=== PATIENT | male | born 1990 | race Caucasian/White ===

== ENCOUNTER 2016-09-21 08:37 | Emergency (ER) | payer BC, MEDICAID ==
[~2016-09-21] VITALS: Ht 177.8 cm; Wt 74.0 kg
[2016-09-21] MEDS ORDERED: SUBO8MIS (08:54)
[2016-09-21] MEDS ORDERED: PANT40TA2 (08:54)
[2016-09-21] MEDS ORDERED: SERT-155 (08:54)
[2016-09-21] MEDS ORDERED: GABA800T (08:54)
[2016-09-21] MEDS ORDERED: ONDANSETRON 4MG/2ML VIAL (J2405) IV ONE (09:30)
[2016-09-21] MEDS ORDERED: KETOROLAC 30 MG/ML VIAL (J1885) IV ONE (09:30)
[2016-09-21] MEDS ORDERED: ISOVUE-370 76% 100ML VIAL (Q9967) As Ordered ONE (09:35)
[2016-09-21] MEDS ORDERED: GASTROGRAFIN SOLUTION 30ML PO ONE (09:45)
[2016-09-21 10:10] LABS: ALBUMIN 4.2 GM/DL (3.2-5.2); ALBUMIN/GLOBULIN RATIO 1.11 (1.00-1.93); ALKALINE PHOSPHATASE 74 U/L (45-117); ALT/SGPT 19 U/L (12-78); AMYLASE 39 U/L (25-115); ANION GAP 5 MEQ/L (8-16); AST/SGOT 14 U/L (15-37); BASO # 0.1 K/mm3 (0.0-0.2); BASO % 0.7 % (0.0-1.0); BILIRUBIN,DIRECT < 0.1 MG/DL (0.0-0.2); BILIRUBIN,TOTAL 0.3 MG/DL (0.2-1.0); BLOOD UREA NITROGEN 17 MG/DL (7-18); CALCIUM LEVEL 9.2 MG/DL (8.5-10.1); CARBON DIOXIDE LEVEL 31 MEQ/L (21-32); CHLORIDE LEVEL 105 MEQ/L (98-107); CREATININE FOR GFR 1.21 MG/DL (0.70-1.30); EOS # 0.8 K/mm3 (0.0-0.50); EOS % 7.4 % (0.0-3.0); GLOMERULAR FILTRATION RATE > 60.0 (>60); GLUCOSE, FASTING 92 MG/DL (70-105); LARGE UNSTAINED CELL # 0.1 K/mm3 (0.0-0.4); LARGE UNSTAINED CELL % 0.7 % (0.0-4.0); LYMPH # 2.1 K/mm3 (1.5-6.5); LYMPH % 19.2 % (24.0-44.0); MEAN CORPUSCULAR HEMOGLOBIN 29.5 pg (27.0-33.0); MEAN CORPUSCULAR HGB CONC 35.4 g/dl (32.0-36.5); MEAN CORPUSCULAR VOLUME 83.5 fl (80.0-96.0); MONO # 0.6 K/mm3 (0.0-0.8); MONO % 6.1 % (0.0-5.0); NEUTROPHILS # 6.9 K/mm3 (1.8-7.7); PLATELET COUNT, AUTOMATED 216 k/mm3 (150-450); RED CELL DISTRIBUTION WIDTH 13.1 % (11.5-14.5); SODIUM LEVEL 141 MEQ/L (136-145); WHITE BLOOD COUNT 10.4 K/mm3 (4.0-10.0)
[2016-09-21] MEDS ORDERED: GASTROGRAFIN SOLUTION 30ML (Q9963) PO ONE (10:15)
[2016-09-21] MEDS ORDERED: TRIMETHOBENZAMIDE HCL INJ 200 MG/2 ML VIAL (J3250) IM ONE (11:15)
[2016-09-21] MEDS ORDERED: ZOFR4TAB3 PO (11:43)
[2016-09-21 11:54] VITALS: BP 122/76
--- NOTE | 2016-09-21 11:57 | REP ---
CT ABDOMEN AND PELVIS WITHOUT IV CONTRAST: TECHNIQUE: CT abdomen and pelvis performed with oral contrast but without IV contrast, with sagittal and coronal reconstruction images performed. Visualized lung bases are clear. Liver, spleen, adrenals, pancreas are grossly unremarkable. Kidneys demonstrate tiny punctate intrarenal calculi bilaterally. No ureteral calculi are seen. There is no hydroureteronephrosis. There is no abdominal aortic aneurysm. There is no adenopathy. There is no free air or free fluid. There is no bowel thickening. There is no evidence of appendicitis. There is no evidence of pelvic mass. There is a small right inguinal hernia containing fat. IMPRESSION: Several punctate intrarenal calculi are seen bilaterally without ureteral stone or hydroureteronephrosis. Small right inguinal hernia containing fat. No evidence of appendicitis. Signed by Maverick Mei MD 09/21/2016 03:16 P
== END 2016-09-21 11:55 | disposition home or self-care (01) ==
LOC: M ED 09:35
DX: N20.0 Calculus of kidney (principal); K40.90 Unilateral inguinal hernia, without obstruction or gangrene, not specified as recurrent; R11.2 Nausea with vomiting, unspecified; R10.31 Right lower quadrant pain; F41.9 Anxiety disorder, unspecified; F32.9 Major depressive disorder, single episode, unspecified; G40.909 Epilepsy, unspecified, not intractable, without status epilepticus; F17.200 Nicotine dependence, unspecified, uncomplicated; F19.21 Other psychoactive substance dependence, in remission; Z79.891 Long term (current) use of opiate analgesic; Z79.899 Other long term (current) drug therapy; Z88.0 Allergy status to penicillin; Z88.1 Allergy status to other antibiotic agents
CPT/HCPCS: 74176; 80048; 80076; 81001; 82150; 83605; 83690; 85025; 96372; 96374; 96375; 99283; J1885; J2405; J3250; Q9963

== ENCOUNTER → 2017-03-31 | Outpatient (CLI) | payer OTHER | LOC: M WUC 15:09 | DX: M54.2 Cervicalgia (principal) | CPT/HCPCS: 72052 ==

== ENCOUNTER → 2017-11-19 | Outpatient (REF) | payer OTHER | LOC: M SFHCLERA 15:06 | DX: R53.81 Other malaise (principal) ==

== ENCOUNTER → 2018-08-21 | Outpatient (CLI) | payer OTHER ==
[~2018-08-21] MED LIST: GABA800T4; PANT40TA3; SERT-155; SUBO8MIS; ZOFR4TAB14 PO
--- NOTE | 2018-08-21 13:01 | REP ---
Clinical: Palpable mass. Technique: Real time worley scale and color evaluation using linear high frequency transducer. Findings: Directed ultrasound examination along the bilateral mid thighs demonstrate ovoid echogenic mass in the subcutaneous tissue measuring 2.0 x 0.9 x 1.9 cm on the right and 0.9 x 0.4 x 0.9 cm on the left which may reflect small lipomas. Impression: Bilateral solitary small echogenic lesions in the subcutaneous tissue most compatible with lipoma. Electronically Signed by Chuy Novoa MD 08/21/2018 12:53 P
== END ==
LOC: M RAD 11:39
PROVIDERS: ATTEND Family Medicine Addiction Medicine
DX: R22.43 Localized swelling, mass and lump, lower limb, bilateral (principal)

== ENCOUNTER 2018-09-15 18:00 | Emergency (ER) | payer OTHER ==
[~2018-09-15] VITALS: Ht 177.8 cm; Wt 77.3 kg
[2018-09-15] MEDS ORDERED: BACIOIN5 OP (18:15)
[2018-09-15] MEDS ORDERED: IBUPROFEN 800 MG TAB PO ONE (18:15)
[2018-09-15] MEDS ORDERED: IBUP-1022 PO (18:15)
[2018-09-15] MEDS ORDERED: ADACEL/BOOSTRIX VACCINE (DIPHTH/PERTUSS/ACELL/TETANUS)0.5ML SYR (90715) IM ONE (18:15)
[2018-09-15 18:37] VITALS: BP 115/64
== END 2018-09-15 19:42 | disposition home or self-care (01) ==
LOC: M ED 18:00 → EDBD 18:00 → M ED 19:42
DX: T22.011A Burn of unspecified degree of right forearm, initial encounter (principal); X19.XXXA Contact with other heat and hot substances, initial encounter; Y92.89 Other specified places as the place of occurrence of the external cause; Y99.0 Civilian activity done for income or pay; Z88.0 Allergy status to penicillin; Z88.1 Allergy status to other antibiotic agents

== ENCOUNTER 2020-09-04 14:54 | Emergency (ER) | payer OTHER ==
[~2020-09-04] VITALS: Ht 177.8 cm; Wt 63.6 kg
[~2020-09-04 14:54] MED LIST changes: +BACIOIN5 OP; +IBUP-1022 PO; +PANT40TA29; -PANT40TA3; -SERT-155; +SERT50TA29
[2020-09-04] MEDS ORDERED: NS 1,000 ML IV ONE (15:50)
[2020-09-04 15:54] LABS: BASO # 0.1 10^3/uL (0.0-0.2); BASO % 0.6 % (0.0-1.0); EOS # 0.3 10^3/uL (0.0-0.5); EOS % 3.5 % (0.0-3.0); HEMATOCRIT 43.4 % (42.0-52.0); HEMOGLOBIN 14.5 g/dl (13.5-17.5); LYMPH # 1.3 10^3/uL (1.5-5.0); LYMPH % 16.8 % (24.0-44.0); MEAN CORPUSCULAR HEMOGLOBIN 27.9 pg (27.0-33.0); MEAN CORPUSCULAR HGB CONC 33.4 g/dl (32.0-36.5); MEAN CORPUSCULAR VOLUME 83.6 fl (80.0-96.0); MONO # 0.6 10^3/uL (0.0-0.8); MONO % 7.2 % (2.0-8.0); NEUTROPHILS # 5.7 10^3/uL (1.5-8.5); NEUTROPHILS % 71.6 % (36.0-66.0); PLATELET COUNT, AUTOMATED 286 10^3/uL (150-450); RED BLOOD COUNT 5.19 10^6/uL (4.30-6.10); WHITE BLOOD COUNT 7.9 10^3/uL (4.0-10.0)
--- NOTE | 2020-09-04 16:01 | REP ---
INDICATION: abdominal pain COMPARISON: None. TECHNIQUE: Portable AP view of the chest FINDINGS: The mediastinum and cardiac silhouette are within normal limits for portable technique. The lung clark are clear without acute consolidation, effusion, or pneumothorax. Skeletal structures are intact. IMPRESSION: No acute cardiopulmonary process appreciated. <Electronically signed by Chuy Novoa > 09/04/20 1998
[2020-09-04] MEDS ORDERED: KETOROLAC 30 MG/ML 1ML VIAL IV ONE (16:05)
[2020-09-04 16:26] LABS: ALT/SGPT 17 U/L (12-78); BILIRUBIN,DIRECT 0.2 MG/DL (0.0-0.2); BILIRUBIN,TOTAL 0.6 MG/DL (0.2-1.0); BLOOD UREA NITROGEN 6 MG/DL (7-18); CALCIUM LEVEL 9.5 MG/DL (8.5-10.1); CARBON DIOXIDE LEVEL 28 MEQ/L (21-32); CHLORIDE LEVEL 106 MEQ/L (98-107); CREATININE FOR GFR 1.12 MG/DL (0.70-1.30); GLOMERULAR FILTRATION RATE > 60.0 (>60); GLUCOSE, FASTING 143 MG/DL (70-100); LIPASE 40 U/L (73-393); POTASSIUM SERUM 3.5 MEQ/L (3.5-5.1); SODIUM LEVEL 140 MEQ/L (136-145); TOTAL PROTEIN 7.2 GM/DL (6.4-8.2)
[2020-09-04] MEDS ORDERED: ISOVUE-370 76% 100ML VIAL As Ordered ONE (17:15)
--- NOTE | 2020-09-04 19:04 | REPVR ---
PROCEDURE INFORMATION: Exam: CT Abdomen And Pelvis With Contrast Exam date and time: 09/04/2020 5:49 PM Age: 30 years old Clinical indication: Abdominal pain; Generalized TECHNIQUE: Imaging protocol: Computed tomography of the abdomen and pelvis with contrast. Radiation optimization: All CT scans at this facility use at least one of these dose optimization techniques: automated exposure control; mA and/or kV adjustment per patient size (includes targeted exams where dose is matched to clinical indication); or iterative reconstruction. Contrast material: ISOVUE 370; Contrast volume: 100 ml; Contrast route: INTRAVENOUS (IV); COMPARISON: CT ABD/PEL W/PO CONTRAST ONLY 09/21/2016 11:10 AM FINDINGS: Lungs: The lung bases are unremarkable. Liver: There are no focal liver lesions. Gallbladder and bile ducts: The gallbladder is unremarkable. Pancreas: The pancreas is normal. Spleen: The spleen is unremarkable. Adrenal glands: The adrenal glands are unremarkable. Kidneys and ureters: There are punctate calculi in both kidneys with left hydronephrosis. There is an obstructing calculus in the distal left ureter at the ureterovesicular junction measuring 4 mm. Series 201, image 121. Stomach and bowel: Unremarkable. No obstruction. No mucosal thickening. Appendix: No evidence of appendicitis. Intraperitoneal space: Unremarkable. No free air. No significant fluid collection. Vasculature: Unremarkable. No abdominal aortic aneurysm. Lymph nodes: Unremarkable. No enlarged lymph nodes. Urinary bladder: The urinary bladder is nearly empty and not well evaluated. Reproductive: Unremarkable as visualized. Bones/joints: Unremarkable. No acute fracture. Soft tissues: Unremarkable. IMPRESSION: There is an obstructing 4 mm calculus in the left ureterovesicular junction. There are multiple bilateral punctate renal calculi with left hydronephrosis and hydroureter. Electronically signed by: Agnieszka Cordova On 09/04/2020 19:03:37 PM
[2020-09-04] MEDS ORDERED: FLOM0.4C39 PO (20:42)
[2020-09-04] MEDS ORDERED: KETO10TAB PO (20:42)
[2020-09-04] MEDS ORDERED: TAMSULOSIN 0.4 MG CAP PO ONE (20:45)
[2020-09-04 21:30] VITALS: BP 111/56
== END 2020-09-04 21:48 | disposition home or self-care (01) ==
LOC: M ED 14:54
DX: N20.1 Calculus of ureter (principal); K21.9 Gastro-esophageal reflux disease without esophagitis; F17.200 Nicotine dependence, unspecified, uncomplicated; Z79.899 Other long term (current) drug therapy; Z88.1 Allergy status to other antibiotic agents; Z88.0 Allergy status to penicillin
CPT/HCPCS: 71045; 74177; 80048; 80076; 81001; 83605; 83690; 85025; 87040; 96374; 99285; J1885; Q9967

== ENCOUNTER 2021-12-15 09:20 | Emergency (ER) | payer OTHER ==
[~2021-12-15] VITALS: Ht 177.8 cm; Wt 63.6 kg
[~2021-12-15 09:20] MED LIST changes: +FLOM0.4C39 PO; +KETO10TAB PO
[2021-12-15 10:07] LABS: BASO # 0.1 10^3/uL (0.0-0.2); BASO % 0.6 % (0.0-1.0); EOS # 0.2 10^3/uL (0.0-0.5); EOS % 2.4 % (0.0-3.0); HEMATOCRIT 39.6 % (42.0-52.0); HEMOGLOBIN 13.2 g/dl (13.5-17.5); LYMPH # 1.2 10^3/uL (1.5-5.0); LYMPH % 14.4 % (24.0-44.0); MEAN CORPUSCULAR HEMOGLOBIN 28.3 pg (27.0-33.0); MEAN CORPUSCULAR HGB CONC 33.3 g/dl (32.0-36.5); MEAN CORPUSCULAR VOLUME 84.8 fl (80.0-96.0); MONO # 0.5 10^3/uL (0.0-0.8); MONO % 5.6 % (2.0-8.0); NEUTROPHILS # 6.5 10^3/uL (1.5-8.5); NEUTROPHILS % 76.6 % (36.0-66.0); PLATELET COUNT, AUTOMATED 265 10^3/uL (150-450); RED BLOOD COUNT 4.67 10^6/uL (4.30-6.10); WHITE BLOOD COUNT 8.5 10^3/uL (4.0-10.0)
[2021-12-15 10:38] LABS: ALT/SGPT 15 U/L (12-78); BILIRUBIN,DIRECT 0.1 MG/DL (0.0-0.2); BILIRUBIN,TOTAL 0.4 MG/DL (0.2-1.0); BLOOD UREA NITROGEN 11 MG/DL (7-18); CALCIUM LEVEL 9.4 MG/DL (8.5-10.1); CARBON DIOXIDE LEVEL 31 MEQ/L (21-32); CHLORIDE LEVEL 104 MEQ/L (98-107); GLOMERULAR FILTRATION RATE > 60.0 (>60); GLUCOSE, FASTING 93 MG/DL (70-100); LIPASE 76 U/L (73-393); POTASSIUM SERUM 3.8 MEQ/L (3.5-5.1); SODIUM LEVEL 139 MEQ/L (136-145); TOTAL PROTEIN 7.2 GM/DL (6.4-8.2)
[2021-12-15 13:41] VITALS: BP 128/68
== END 2021-12-15 13:42 | disposition home or self-care (01) ==
LOC: M ED 09:20
DX: K42.9 Umbilical hernia without obstruction or gangrene (principal); K40.90 Unilateral inguinal hernia, without obstruction or gangrene, not specified as recurrent; R56.9 Unspecified convulsions; K21.9 Gastro-esophageal reflux disease without esophagitis; F17.200 Nicotine dependence, unspecified, uncomplicated; Z79.899 Other long term (current) drug therapy; Z88.0 Allergy status to penicillin; Z88.1 Allergy status to other antibiotic agents

== ENCOUNTER 2024-06-10 20:57 | Emergency (ER) | payer MEDICAID, OTHER ==
[~2024-06-10] VITALS: Ht 177.8 cm; Wt 63.6 kg
[~2024-06-10 20:57] MED LIST changes: +GABA-1635; -GABA800T4
[2024-06-10 21:27] LABS: BASO # 0.1 10^3/uL (0.0-0.2); BASO % 0.4 % (0.0-1.0); EOS # 0.2 10^3/uL (0.0-0.5); EOS % 1.5 % (0.0-3.0); HEMATOCRIT 38.6 % (42.0-52.0); HEMOGLOBIN 13.3 g/dl (13.5-17.5); LYMPH % 7.8 % (24.0-44.0); MEAN CORPUSCULAR HEMOGLOBIN 28.7 pg (27.0-33.0); MEAN CORPUSCULAR HGB CONC 34.5 g/dl (32.0-36.5); MEAN CORPUSCULAR VOLUME 83.2 fl (80.0-96.0); MONO # 0.6 10^3/uL (0.0-0.8); MONO % 4.4 % (2.0-8.0); NEUTROPHILS # 10.8 10^3/uL (1.5-8.5); NEUTROPHILS % 85.5 % (36.0-66.0); PLATELET COUNT, AUTOMATED 289 10^3/uL (150-450); RED BLOOD COUNT 4.64 10^6/uL (4.30-6.10); WHITE BLOOD COUNT 12.6 10^3/uL (4.0-10.0)
[2024-06-10] MEDS: NS (Normal Saline) 0.9% 1,000 ML IV ONE (21:39)
[2024-06-10] MEDS: ACETAMINOPHEN *IV* 1,000 MG in IV 1 EA IV ONE (21:39)
[2024-06-10 21:57] LABS: ALBUMIN 3.9 G/DL (3.2-5.2); ALKALINE PHOSPHATASE 55 U/L (40-129); ALT/SGPT 10 U/L (7.0-40); AST/SGOT 21 U/L (<34); BILIRUBIN,TOTAL 0.4 MG/DL (0.3-1.2); BLOOD UREA NITROGEN 10 MG/DL (9-23); CARBON DIOXIDE LEVEL 27 MMOL/L (20-31); CHLORIDE LEVEL 106 MMOL/L (98-107); CREATININE FOR GFR 1.04 MG/DL (0.70-1.30); GLOMERULAR FILTRATION RATE > 60.0 (>60); GLUCOSE, FASTING 120 MG/DL (60-100); POTASSIUM SERUM 4.5 MMOL/L (3.5-5.1); SODIUM LEVEL 143 MMOL/L (136-145); TOTAL PROTEIN 6.7 G/DL (5.7-8.2)
[2024-06-10 23:06] LABS: KETONE, URINE AUTO RFX NEGATIVE (NEGATIVE); LEUKOCYTE ESTERASE UR AUTO RFX NEGATIVE (NEGATIVE); MUCUS, URINE RFX SMALL (NEGATIVE); NITRITE, URINE AUTO RFX NEGATIVE (NEGATIVE); RBC, URINE AUTO RFX TNTC /HPF (0-3); SQUAM EPITHELIAL CELL UR AURFX 0 /HPF (0-6); WBC, URINE AUTO RFX 2 /HPF (0-3)
[2024-06-10] MEDS ORDERED: FLOM0.4C39 PO (23:15)
[2024-06-10] MEDS ORDERED: KETO10TAB PO (23:15)
[2024-06-10 23:30] VITALS: BP 114/65; TEMP 98.2; O2SAT 98
[2024-06-10] MEDS: TAMSULOSIN 0.4 MG CAP PO ONE (23:44)
== END 2024-06-10 23:48 | disposition home or self-care (01) ==
LOC: EDBD 20:57 → M ED 20:57
DX: N20.1 Calculus of ureter (principal); N13.4 Hydroureter; N32.3 Diverticulum of bladder; F17.200 Nicotine dependence, unspecified, uncomplicated; Z79.899 Other long term (current) drug therapy; Z87.442 Personal history of urinary calculi; Z88.1 Allergy status to other antibiotic agents
CPT/HCPCS: 74176; 76870; 80053; 81001; 85025; 93976; 96361; 96365; 99284; J0131